=== PATIENT | female | born 1985 | race Caucasian/White ===

== ENCOUNTER 2017-09-01 12:47 | Emergency (ER) | payer SELFPAY ==
[~2017-09-01] VITALS: Ht 154.9 cm; Wt 71.4 kg
[~2017-09-01 12:47] MED LIST: CLIN150 PO; IBUP600T26 PO; NAPR220T95 PO
[2017-09-01 12:53] VITALS: BP 137/92; PULSE 82; RESP 16; TEMP 97.9; O2SAT 99
[2017-09-01] MEDS ORDERED: CLIN300C5 PO (13:42)
--- NOTE | 2017-09-01 13:42 | PD ---
HPI Chief Complaint: Oral / Dental Pain or Problem Time Seen by Provider: 13:30 Travel History International Travel<30 days: No Contact w/Intl Traveler<30days: No Traveled to known affect area: No History of Present Illness HPI 32-year-old female here with left lower dental pain 1 week. She believes this is a dental abscess. No fever chills. No swelling to the floor the mouth or difficulty swallowing. Symptom severity is moderate. She reports constant throbbing aching pain localized to the left lower jaw. No alleviating factors. PFSH Past Medical History Cardiovascular Problems: Yes (Murmur ) Diabetes: Yes (Gestational ) Patient Takes Glucophage: No Diminished Hearing: No Musculoskeletal: Yes (Hip dysplasia ) Tetanus Vaccination: > 5 Years Influenza Vaccination: No ?: Not LMP: 08/08/17 Past Surgical History Ear Surgery: Yes (Lt. eardrum ) Other Surgery: Yes (Right ankle ) Social History Alcohol Use: No Tobacco Use: Yes (1/2 PPD) Substance Use: No Allergies-Medications (Allergen,Severity, Reaction): Coded Allergies: Sulfa (Sulfonamide Antibiotics) (Unverified Allergy, Intermediate, swelling, 09/01/17) cephalexin (Unverified Allergy, Intermediate, hives, 09/01/17) pt states does not have a allergy to this medication. penicillin G (Unverified Allergy, Intermediate, hives, 09/01/17) aspirin (Unverified Allergy, Unknown, UNKNOWN, 09/01/17) Uncoded Allergies: all cillins (Allergy, Intermediate, hives, 09/01/17) Reported Meds & Prescriptions Reported Meds & Active Scripts Active Clindamycin (Clindamycin HCl) 300 Mg Cap 300 Mg PO TID 7 Days Review of Systems Except as stated in HPI: all other systems reviewed are Neg General / Constitutional: No: Fever HENT: Positive: Dental Difficulties Cardiovascular: No: Chest Pain or Discomfort Respiratory: No: Shortness of Breath Gastrointestinal: No: Abdominal Pain Genitourinary: No: Dysuria Physical Exam Narrative GENERAL: Alert and well-appearing 32-year-old female SKIN: Warm and dry. HEAD: Normocephalic. EYES: No injection or drainage. MOUTH: Widespread dental decay. Decayed and fractured tooth #20 with surrounding gum erythema and swelling. No defined abscess. No swelling to the floor the mouth. Uvula is midline. Airways patent. NECK: Supple CARDIOVASCULAR: Regular rate and rhythm RESPIRATORY: Breath sounds equal bilaterally. No accessory muscle use. GASTROINTESTINAL: Abdomen soft, non-tender, nondistended. Data Data Last Documented VS Vital Signs Date Time Temp Pulse Resp B/P (MAP) Pulse Ox O2 Delivery O2 Flow Rate FiO2 09/01/17 12:53 97.9 82 16 137/92 (107) 99 Orders Orders Ed Discharge Order (09/01/17 13:42) MDM Medical Decision Making Medical Screen Exam Complete: Yes Emergency Medical Condition: Yes Differential Diagnosis Dental infection, dental abscess, periodontal disease Narrative Course 32-year-old female here with dental infection. She is nontoxic appearing. Patient has multiple drug allergies. She will be prescribed clindamycin Diagnosis Primary Impression: Dental infection Referrals: Dentist Additional Instructions: Medication as directed. Follow-up with a dentist. Scripts Clindamycin (Clindamycin) 300 Mg Cap 300 MG PO TID for Infection for 7 Days, CAP 0 Refills Prov: Leigh Mccann 09/01/17 Disposition: 01 DISCHARGE HOME Condition: Stable Leigh Mccann Sep 01, 2017 13:42
[2017-09-02] MEDS ORDERED: MAGICPED SWISH-SPIT (11:49)
[2017-09-02] MEDS ORDERED: HYDR-3516 PO (11:49)
== END 2017-09-01 13:57 | disposition home or self-care (01) ==
LOC: PHEFT 12:47
DX: K04.7 Periapical abscess without sinus (principal); K02.9 Dental caries, unspecified; S02.5XXA Fracture of tooth (traumatic), initial encounter for closed fracture; R01.1 Cardiac murmur, unspecified; E11.9 Type 2 diabetes mellitus without complications; F17.200 Nicotine dependence, unspecified, uncomplicated; X58.XXXA Exposure to other specified factors, initial encounter; Z88.2 Allergy status to sulfonamides; Z88.6 Allergy status to analgesic agent; Z88.0 Allergy status to penicillin
CPT/HCPCS: 99283

== ENCOUNTER 2017-09-02 11:30 | Emergency (ER) | payer SELFPAY ==
[~2017-09-02] VITALS: Ht 154.9 cm; Wt 70.3 kg
[~2017-09-02 11:30] MED LIST changes: -CLIN150 PO; +CLIN300C5 PO; -IBUP600T26 PO; -NAPR220T95 PO
[2017-09-02 11:32] VITALS: BP 136/89; PULSE 85; RESP 16; TEMP 98.6; O2SAT 98
[2017-09-02] MEDS ORDERED: HYDR-3516 PO (11:49)
[2017-09-02] MEDS ORDERED: MAGICPED SWISH-SPIT (11:49)
--- NOTE | 2017-09-02 11:59 | PD ---
HPI Chief Complaint: Oral / Dental Pain or Problem Time Seen by Provider: 11:48 Travel History International Travel<30 days: No Contact w/Intl Traveler<30days: No Traveled to known affect area: No History of Present Illness HPI 32-year-old female presents emergency department for reevaluation of an abscess tooth on the left lower jaw been present for several days. Says that she presented to the emergency department yesterday but the pain is worsened and request pain medication. Says that she has been using 5 200 mg ibuprofen tablets without relief. Says that she called the dentist and they advised she return to the emergency department for pain medication. Says that the dentist would not pull or deal with the tooth until the infection has resolved. Patient says the pain is located in the left frontal area of the lower jaw that radiates into the molar region. She denies stiff neck. Denies fevers or chills. Her pain is moderate to severe. Touching the jaw and tooth increases her pain. Has no other complaints today. PFSH Past Medical History Hx Anticoagulant Therapy: No Cardiovascular Problems: Yes (Murmur ) Diabetes: Yes (Gestational ) Patient Takes Glucophage: No Diminished Hearing: No Musculoskeletal: Yes (Hip dysplasia ) Tetanus Vaccination: Unknown ?: Not Past Surgical History Ear Surgery: Yes (Lt. eardrum ) Other Surgery: Yes (Right ankle ) Social History Alcohol Use: No Tobacco Use: Yes (1/2 PPD) Substance Use: No Allergies-Medications (Allergen,Severity, Reaction): Coded Allergies: Sulfa (Sulfonamide Antibiotics) (Verified Allergy, Intermediate, swelling , 09/02/17) cephalexin (Verified Allergy, Intermediate, hives, 09/02/17) pt states does not have a allergy to this medication. penicillin G (Verified Allergy, Intermediate, hives, 09/02/17) aspirin (Verified Allergy, Unknown, UNKNOWN, 09/02/17) Uncoded Allergies: all cillins (Allergy, Intermediate, hives, 09/01/17) Reported Meds & Prescriptions Reported Meds & Active Scripts Active Magic Mouthwash Pediatric/Adult Liq (Lidocaine/Diphenhydr/Alum/Mg/Simeth) 60 Ml Susp 5 Ml SWISH-SPIT ACHS Each 5mL contains: Diphenydramine 4.5mg, Viscous Lidocaine 2% 10mg, Maalox Advanced Regular Strength 2.7ml Hydrocodone-Acetaminophen 5-325 mg Tab 1 Tab PO Q6H PRN 3 Days Clindamycin (Clindamycin HCl) 300 Mg Cap 300 Mg PO TID 7 Days Review of Systems Except as stated in HPI: all other systems reviewed are Neg Physical Exam Narrative GENERAL: Well-nourished, well-developed patient, in NAD SKIN: Focused skin assessment warm/dry. No rashes or lesions. HEAD: Normocephalic. Atraumatic. EYES: No scleral icterus. No injection or drainage. PERRLA, EOMI THROAT: No pharyngeal injection, exudates, or tonsillar hypertrophy. Airway is patent. Limited range of motion of the jaw secondary to pain. Tenderness to palpation along the left lower bicuspid region of the jaw. No areas of fluctuance. Poor dentition. It appears that the area of concern has a completely eroded tooth. NECK: Supple, trachea midline. No JVD or lymphadenopathy. No meningismus. CARDIOVASCULAR: Regular rate and rhythm without murmurs, gallops, or rubs. RESPIRATORY: Breath sounds equal bilaterally. No accessory muscle use. No wheezes, rales, or rhonchi MUSCULOSKELETAL: No cyanosis, or edema. BACK: Nontender without obvious deformity. No CVA tenderness. Data Data Last Documented VS Vital Signs Date Time Temp Pulse Resp B/P (MAP) Pulse Ox O2 Delivery O2 Flow Rate FiO2 09/02/17 11:32 98.6 85 16 136/89 (105) 98 Orders Orders Acetamin-Hydrocod 325-5 Mg (Theresa 5-325 (09/02/17 12:00) MDM Medical Decision Making Medical Screen Exam Complete: Yes Emergency Medical Condition: Yes Differential Diagnosis Tooth abscess, tooth infection, poor dentition, dental caries Narrative Course 32-year-old female presents emergency department for reevaluation of an abscess tooth on the left lower jaw been present for several days. Says that she presented to the emergency department yesterday but the pain is worsened and request pain medication. Says that she has been using 5 200 mg ibuprofen tablets without relief. Says that she called the dentist and they advised she return to the emergency department for pain medication. Says that the dentist would not pull or deal with the tooth until the infection has resolved. Patient says the pain is located in the left frontal area of the lower jaw that radiates into the molar region. She denies stiff neck. Denies fevers or chills. Her pain is moderate to severe. Touching the jaw and tooth increases her pain. Has no other complaints today. He states compliance with clindamycin as prescribed yesterday. Vital signs are stable. Hydrocodone administered in the ED today. Physical exam findings demonstrate a well-developed, well-nourished 32-year-old female in moderate distress. She has tenderness palpation of the left lower jaw. I reviewed E force. Patient will be discharged with Magic mouthwash and hydrocodone. Advised to use the hydrocodone sparingly as we cannot prescribe any more this medication for this complaint. Advised that she may continue to use ibuprofen for her pain. Diagnosis Primary Impression: Tooth infection Referrals: Dentist Additional Instructions: Continue clindamycin as prescribed yesterday. Use Magic mouthwash as prescribed. Take hydrocodone sparingly as we are unable to prescribe any more of this medication. You may continue to use ibuprofen per package instructions. Scripts Yryfsemkvjuwhqr-Tvdimfqfd-Llg-Alum-Simeth Liq (Magic Mouthwash Pediatric/Adult Liq) 60 Ml Susp 5 ML SWISH-SPIT ACHS for Mouth sores, #60 ML 0 Refills Each 5mL contains: Diphenydramine 4.5mg, Viscous Lidocaine 2% 10mg, Maalox Advanced Regular Strength 2.7ml Prov: Luiz Dutton MD 09/02/17 Hydrocodone-Acetaminophen (Hydrocodone-Acetaminophen) 5-325 mg Tab 1 TAB PO Q6H Y for PAIN for 3 Days, #10 TAB 0 Refills Prov: Luiz Dutton MD 09/02/17 Disposition: 01 DISCHARGE HOME Condition: Stable Jennifer De La Garza Sep 02, 2017 11:59
[2017-09-02] MEDS ORDERED: ACETAMINOPHEN/HYDROcodone 325 MG/5 MG TAB PO ONE (12:00)
== END 2017-09-02 12:17 | disposition home or self-care (01) ==
LOC: PHEFT 11:30
DX: K04.7 Periapical abscess without sinus (principal); F17.200 Nicotine dependence, unspecified, uncomplicated
CPT/HCPCS: 99283